=== PATIENT | male | born 1980 ===

== ENCOUNTER 2023-10-10 16:42 | Outpatient (CLI) | payer OTHER, SELFPAY | END 2023-10-10 16:43 | disposition home or self-care (01) | PROVIDERS: PCP Nurse Practitioner Family; Visit Provider Nurse Practitioner Family | DX: Z00.00 Encounter for general adult medical examination without abnormal findings (principal); I10 Essential (primary) hypertension; E78.5 Hyperlipidemia, unspecified; M10.9 Gout, unspecified; E66.9 Obesity, unspecified | CPT/HCPCS: 80053; 80061; 84550 ==